=== PATIENT | female | born 1990 | race Caucasian/White ===

== ENCOUNTER 2017-08-25 18:38 | Emergency (ER) | payer OTHER ==
[~2017-08-25] VITALS: Ht 167.6 cm; Wt 69.8 kg
[2017-08-25 19:05] LABS: URINE BILIRUBIN NEGATIVE (Negative); URINE BLOOD TRACE (Negative); URINE CLARITY CLEAR; URINE COLOR YELLOW; URINE GLUCOSE-RANDOM* NEGATIVE (Negative); URINE KETONES TRACE (Negative); URINE NITRITE-REFLEX NEGATIVE (Negative); URINE PROTEIN (DIPSTICK) NEGATIVE (Negative); URINE UROBILINOGEN 0.2 E.U./dl (0.2-1.0)
[2017-08-25 19:07] LABS: URINE LEUKOCYTES-REFLEX TRACE (Negative)
[2017-08-25] MEDS ORDERED: ZYRTEC10 M4 PO (19:09)
[2017-08-25 19:16] LABS: HEMATOCRIT 40.1 % (37.0-47.0); HEMOGLOBIN 13.6 gm/dL (12.0-15.0); MCHC 33.9 g/dL (28.0-37.0); MCV 88.6 fL (80.0-100.0); RBC 4.53 mil/uL (4.20-5.00); RDW 13.4 % (10.5-14.5); WBC 10.3 thou/uL (4.0-11.0)
[2017-08-25 19:21] LABS: CREATININE 0.8 mg/dL (0.6-1.0); POTASSIUM 3.5 mmol/L (3.5-5.1)
[2017-08-25] MEDS ORDERED: NAPROSYN500 MG PO (20:48)
[2018-02-05] MEDS ORDERED: BACTRIM DS TAB1 EACH PO (19:52)
[2018-02-05] MEDS ORDERED: CLEOCIN HCL150 MG PO (21:47)
== END 2017-08-25 21:49 | disposition home or self-care (01) ==
LOC: ER 18:38
PROVIDERS: Physician Assistant
DX: N94.0 Mittelschmerz (principal); N83.201 Unspecified ovarian cyst, right side

== ENCOUNTER 2018-06-28 09:19 | Emergency (ER) | payer BC, OTHER ==
[~2018-06-28] VITALS: Ht 172.7 cm; Wt 84.4 kg
[~2018-06-28 09:19] MED LIST: BACTRIM DS TAB1 EACH PO; CLEOCIN HCL150 MG PO; NAPROSYN500 MG PO; ZYRTEC10 M4 PO
[2018-06-28 10:12] LABS: ABSOLUTE NEUTROPHILS 11.9 thou/uL (1.4-8.2); BASOPHILS 0.5 % (0.0-2.0); HEMATOCRIT 41.9 % (37.0-47.0); HEMOGLOBIN 14.4 gm/dL (12.0-15.0); LYMPHOCYTES 3.3 % (24.0-44.0); MCH 29.9 pg (26.0-34.0); MCHC 34.4 g/dL (28.0-37.0); MCV 87.1 fL (80.0-100.0); MONOCYTES 4.3 % (1.0-8.0); PLATELET COUNT 298 thou/uL (150-400); POLYS 91.9 % (36.0-66.0); RBC 4.81 mil/uL (4.20-5.00); RDW 13.3 % (10.5-14.5)
[2018-06-28 10:14] LABS: CREATININE 0.9 mg/dL (0.6-1.0); POTASSIUM 3.5 mmol/L (3.5-5.1)
[2018-06-28 10:16] LABS: URINE BILIRUBIN NEGATIVE (Negative); URINE BLOOD 2+ (Negative); URINE CLARITY CLOUDY; URINE COLOR YELLOW; URINE GLUCOSE-RANDOM* NEGATIVE (Negative); URINE KETONES NEGATIVE (Negative); URINE LEUKOCYTES-REFLEX NEGATIVE (Negative); URINE NITRITE-REFLEX NEGATIVE (Negative); URINE PROTEIN (DIPSTICK) NEGATIVE (Negative); URINE SPECIFIC GRAVITY >= 1.030 (1.005-1.035); URINE UROBILINOGEN 0.2 E.U./dl (0.2-1.0)
[2018-06-28 10:20] LABS: ALBUMIN 4.1 g/dL (3.4-5.0); TOTAL BILIRUBIN 1.4 mg/dL (<0.1-1.0); TOTAL PROTEIN 8.5 g/dL (6.4-8.2)
[2018-06-28 10:37] LABS: CASTS None Seen /LPF (None Seen); MUCUS 4-6 Moderate strn/LPF (None Seen); SQUAMOUS >10 Many /LPF (0-3)
[2018-06-28 10:41] LABS: AMORPHOUS URATES Many /LPF (None Seen); BACTERIA-REFLEX 1-9 Few /HPF (None Seen); URINE RBC None Seen /HPF (0-2); URINE WBC-REFLEX 0-5 Rare /HPF (0-5)
[2018-06-28] MEDS ORDERED: ZOFRAN ODT4 MG PO (12:32)
[2018-06-28] MEDS ORDERED: ULTRAM50 MG PO (12:32)
[2018-06-28] MEDS ORDERED: BENTYL 20 MG TA20 M1 PO (12:32)
[2018-06-28 13:45] VITALS: BP 101/54
== END 2018-06-28 13:45 | disposition home or self-care (01) ==
LOC: ER 09:19
PROVIDERS: Emergency Medicine
DX: K52.9 Noninfective gastroenteritis and colitis, unspecified (principal); Z90.49 Acquired absence of other specified parts of digestive tract; Z98.890 Other specified postprocedural states

== ENCOUNTER 2019-06-26 14:00 | Emergency (ER) | payer OTHER ==
[~2019-06-26] VITALS: Ht 172.7 cm; Wt 76.2 kg
[~2019-06-26 14:00] MED LIST changes: +BENTYL 20 MG TA20 M1 PO; +ULTRAM50 MG PO; +ZOFRAN ODT4 MG PO
[2019-06-26] MEDS ORDERED: NORCO 5-325 TA1 EAC1 PO (16:48)
[2019-06-26] MEDS ORDERED: KEFLEX500 M1 PO (16:48)
[2019-06-26] MEDS ORDERED: BACTRIM DS TAB1 EACH PO (16:48)
[2019-06-26 17:19] VITALS: BP 106/76
== END 2019-06-26 17:19 | disposition home or self-care (01) ==
LOC: ER 14:00
DX: L02.213 Cutaneous abscess of chest wall (principal); Z90.49 Acquired absence of other specified parts of digestive tract